=== PATIENT | female | born 1945 | race Caucasian/White ===

== ENCOUNTER 2024-08-26 10:18 | Outpatient (REF) | payer MEDICARE, SELFPAY ==
[2024-08-26 12:41] VITALS: BP 137/82; PULSE 82; RESP 16; TEMP 36.1; O2SAT 93; BMI 36.6
== END 2024-08-26 10:19 | disposition home or self-care (01) ==
LOC: HO.MS 10:18
PROVIDERS: PCP Family Medicine; Visit Provider Ophthalmology
PROC: (CPT 66821; principal; 2024-08-26 13:10)
DX: H26.492 Other secondary cataract, left eye (principal)
CPT/HCPCS: 66821